=== PATIENT | male | born 1990 | race African-American/Black ===

== ENCOUNTER 2017-10-08 18:41 | Inpatient (IN) ==
[2017-10-08 20:07] LABS: Baso % (Auto) 0.8 % (0.0-2.0); Eos # (Auto) 0.1 th/mm3 (0.0-0.4); Hematocrit 41.7 % (39.0-51.0); Lymph # (Auto) 1.2 th/mm3 (1.0-4.8); Lymph % (Auto) 46.9 % (9.0-44.0); Mean Corpuscular HGB Conc 33.5 % (32.0-36.0); Mean Corpuscular Hemoglobin 30.9 pg (27.0-34.0); Mean Corpuscular Volume 92.2 fL (80.0-100.0); Mean Platelet Volume 8.7 fL (7.0-11.0); Mono # (Auto) 0.5 th/mm3 (0.0-0.9); Mono % (Auto) 20.8 % (0.0-8.0); Neut # (Auto) 0.7 th/mm3 (1.8-7.7); Neut % (Auto) 28.5 % (16.0-70.0); Platelet Count 188 th/mm3 (150-450); Red Blood Count 4.52 mil/mm3 (4.50-5.90); White Blood Count 2.6 th/mm3 (4.0-11.0)
--- NOTE | 2017-10-08 20:08 | ED ---
HPI General Chief Complaint: Psychiatric Symptoms Stated Complaint: exparte/VCSO Time Seen by Provider: 10/08/17 20:07 Source: patient and police Mode of arrival: ambulatory Limitations: no limitations History of Present Illness HPI Narrative: 27-year-old black male presents emergency department under an ex partake for psychiatric evaluation. According to ex partake the patient's been sexually inappropriate. He has been masturbating out in public. He also has been inappropriately touching unknown and female individual. He had stated that masturbating his foreplay. The patient is unwilling to assist with his history and physical today. He is refusing to answer questions. He denies any suicidal homicidal ideation. Related Data Home Medications Medication Instructions Recorded Confirmed olanzapine 10 mg PO HS 10/09/17 10/09/17 paliperidone palmitate [Invega 234 mg IM QMONTH 10/09/17 10/09/17 Sustenna] Allergies Allergy/AdvReac Type Severity Reaction Status Date / Time No Known Allergies Allergy Unknown UNKNOWN Uncoded 10/09/17 10:03 Review of Systems ROS Unobtainable ROS Unobtainable: unobtainable due to mental condition PMFSH Medical History Medical History Neutropenia (Acute) Patient denies medical problems (Acute) Psychosis (Acute) Schizophrenia (Acute) Social History Social History Substance History: No History of Abuse Second Hand Smoke Exposure: No Smoking Status: Current every day smoker Tobacco Type: Cigarettes How Often Do You Have a Drink Containing Alcohol: Never Recent Travel in [facility] within the Last 8 Weeks: No Recent Out of Country Travel within the Last 8 Weeks: No Exam Narrative Exam Narrative: GENERAL: Well-nourished, well-developed patient. SKIN: Warm and dry. HEAD: Normocephalic and atraumatic. EYES: No scleral icterus. No injection or drainage. ENT: No nasal drainage noted. Mucous membranes pink. Airway patent. NECK: Supple, trachea midline. Moves head freely without obvious discomfort. CARDIOVASCULAR: Regular rate and rhythm without murmurs, gallops, or rubs. RESPIRATORY: Breath sounds equal bilaterally. No accessory muscle use. GASTROINTESTINAL: Abdomen soft, non-tender, nondistended. EXTREMITIES: No cyanosis or edema. BACK: Nontender without obvious deformity. No CVA tenderness. NEURO: Patient is alert and oriented. no sensorimotor deficits. Nonfocal. Normal speech. PSYCH: Patient is acutely psychotic. He has orthodoxy preoccupation. Course Initial Documented Vital Signs Pulse Rate 88 10/08/17 19:47 Respiratory Rate 16 10/08/17 19:47 Blood Pressure 129/83 10/08/17 19:47 Pulse Oximetry 99 10/08/17 19:47 Last Documented Vital Signs Temperature 98.4 F 10/13/17 16:43 Pulse Rate 59 L 10/14/17 06:24 Respiratory Rate 18 10/13/17 16:43 Blood Pressure 134/73 10/14/17 06:24 Pulse Oximetry 97 10/13/17 16:43 Medical Decision Making MDM Narrative Medical decision making narrative: Routine laboratory tests sent for analysis for medical clearance. Patient is medically cleared. Medical Screen Exam Complete: Yes Emergency Medical Condition: Yes Differential Diagnosis Differential Diagnosis: MDM: High Differential diagnoses: Schizophrenia, schizoaffective disorder, bipolar, anxiety, depression, adjustment reaction, mood disorder NOS, ODD, depressive disorder NOS, dementia, dementia with agitation, psychosis NOS, substance induced mood disorder, DMDD, Asperger syndrome, infection,electrolyte abnormality, malingering. Mental health screening discussed with the patient. Psychiatric screen ordered. Lab Data Result diagrams: 10/12/17 09:56 10/08/17 19:40 Lab Results 10/08/17 10/08/17 10/08/17 Range/Units 19:40 19:40 19:40 WBC 2.6 L (4.0-11.0) th/mm3 RBC 4.52 (4.50-5.90) mil/mm3 Hgb 14.0 (13.0-17.0) gm/dL Hct 41.7 (39.0-51.0) % MCV 92.2 (80.0-100.0) fL MCH 30.9 (27.0-34.0) pg MCHC 33.5 (32.0-36.0) % RDW 13.0 (11.6-17.2) % Plt Count 188 (150-450) th/mm3 MPV 8.7 (7.0-11.0) fL Prelim Diff (Auto) Slide review pending Neut % (Auto) 28.5 (16.0-70.0) % Lymph % (Auto) 46.9 H (9.0-44.0) % Dixie % (Auto) 20.8 H (0.0-8.0) % Eos % (Auto) 3.0 (0.0-4.0) % Baso % (Auto) 0.8 (0.0-2.0) % Neut # (Auto) 0.7 L (1.8-7.7) th/mm3 Lymph # (Auto) 1.2 (1.0-4.8) th/mm3 Dixie # (Auto) 0.5 (0.0-0.9) th/mm3 Eos # (Auto) 0.1 (0.0-0.4) th/mm3 Baso # (Auto) 0.0 (0.0-0.2) th/mm3 WBC Differential Manual diff final Seg Neuts % (Manual) 20 (16-70) % Band Neuts % (Manual) 1 (0-6) % Lymphocytes % (Manual) 58 H (9-44) % Monocytes % (Manual) 17 H (0-8) % Eosinophils % (Manual) 2 (0-4) % Basophils % (Manual) 1 (0-2) % Metamyelocytes % (Man) 1 (0-1) % Abs Neuts (Manual) 0.6 L (1.8-7.7) th/mm3 Differential Comment . Platelet Estimate Normal (Normal) Platelet Morphology Normal (Normal) RBC Morphology Normal (Normal) ESR (0-15) mm/hr Sodium 143 (136-145) meq/L Potassium 4.2 (3.5-5.1) meq/L Chloride 107 (98-107) meq/L Carbon Dioxide 26.1 (21.0-32.0) meq/L Anion Gap 10 (5-15) meq/L BUN 10 (7-18) mg/dL Creatinine 1.20 (0.60-1.30) mg/dL Estimated GFR 89 (>89) mL/min Random Glucose 104 (74-106) mg/dL Hemoglobin A1c (4.3-6.0) % Calcium 8.7 (8.5-10.1) mg/dL Total Bilirubin 0.3 (0.2-1.0) mg/dL AST 25 (15-37) U/L ALT 20 (12-78) U/L Alkaline Phosphatase 62 (45-117) U/L C-Reactive Protein (0.00-0.30) mg/dL Total Protein 6.9 (6.4-8.2) g/dL Albumin 4.0 (3.4-5.0) g/dL Vitamin B12 (193-986) pg/mL Folate (3.1-17.5) ng/mL TSH 0.520 (0.358-3.740) uIU/mL Salicylates Less than 1.7 L (2.8-20.0) mg/dL Urine Opiates Screen (Neg) Acetaminophen Less than 2.0 L (10.0-30.0) mcg/mL Ur Barbiturates Screen (Neg) Ur Amphetamines Screen (Neg) U Benzodiazepines Scrn (Neg) Urine Cocaine Screen (Neg) U Cannabinoids Screen (Neg) Serum Alcohol Less than 3 (0-5) mg/dL Hepatitis A IgM Ab (Nonreactive) Hep Bs Antigen (Nonreactive) Hep B Core IgM Ab (Nonreactive) Hep C IgG Ab (Nonreactive) HIV 1&2 Ab/P24 Ag 4thGn (Nonreactive) 10/09/17 10/10/17 10/10/17 Range/Units 08:41 10:53 10:53 WBC 2.3 L (4.0-11.0) th/mm3 RBC 5.06 (4.50-5.90) mil/mm3 Hgb 15.6 (13.0-17.0) gm/dL Hct 46.1 (39.0-51.0) % MCV 91.2 (80.0-100.0) fL MCH 30.9 (27.0-34.0) pg MCHC 33.8 (32.0-36.0) % RDW 12.7 (11.6-17.2) % Plt Count 199 (150-450) th/mm3 MPV 9.1 (7.0-11.0) fL Prelim Diff (Auto) Slide review pending Neut % (Auto) 32.0 (16.0-70.0) % Lymph % (Auto) 47.3 H (9.0-44.0) % Dixie % (Auto) 18.3 H (0.0-8.0) % Eos % (Auto) 1.9 (0.0-4.0) % Baso % (Auto) 0.5 (0.0-2.0) % Neut # (Auto) 0.7 L (1.8-7.7) th/mm3 Lymph # (Auto) 1.1 (1.0-4.8) th/mm3 Dixie # (Auto) 0.4 (0.0-0.9) th/mm3 Eos # (Auto) 0.0 (0.0-0.4) th/mm3 Baso # (Auto) 0.0 (0.0-0.2) th/mm3 WBC Differential Manual diff final Seg Neuts % (Manual) 29 (16-70) % Band Neuts % (Manual) 2 (0-6) % Lymphocytes % (Manual) 48 H (9-44) % Monocytes % (Manual) 20 H (0-8) % Eosinophils % (Manual) 1 (0-4) % Basophils % (Manual) (0-2) % Metamyelocytes % (Man) (0-1) % Abs Neuts (Manual) 0.7 L (1.8-7.7) th/mm3 Differential Comment . Platelet Estimate Normal (Normal) Platelet Morphology Normal (Normal) RBC Morphology Normal (Normal) ESR (0-15) mm/hr Sodium (136-145) meq/L Potassium (3.5-5.1) meq/L Chloride (98-107) meq/L Carbon Dioxide (21.0-32.0) meq/L Anion Gap (5-15) meq/L BUN (7-18) mg/dL Creatinine (0.60-1.30) mg/dL Estimated GFR (>89) mL/min Random Glucose (74-106) mg/dL Hemoglobin A1c 5.7 (4.3-6.0) % Calcium (8.5-10.1) mg/dL Total Bilirubin (0.2-1.0) mg/dL AST (15-37) U/L ALT (12-78) U/L Alkaline Phosphatase (45-117) U/L C-Reactive Protein (0.00-0.30) mg/dL Total Protein (6.4-8.2) g/dL Albumin (3.4-5.0) g/dL Vitamin B12 (193-986) pg/mL Folate (3.1-17.5) ng/mL TSH (0.358-3.740) uIU/mL Salicylates (2.8-20.0) mg/dL Urine Opiates Screen Neg (Neg) Acetaminophen (10.0-30.0) mcg/mL Ur Barbiturates Screen Neg (Neg) Ur Amphetamines Screen Neg (Neg) U Benzodiazepines Scrn Neg (Neg) Urine Cocaine Screen Neg (Neg) U Cannabinoids Screen Pos H (Neg) Serum Alcohol (0-5) mg/dL Hepatitis A IgM Ab (Nonreactive) Hep Bs Antigen (Nonreactive) Hep B Core IgM Ab (Nonreactive) Hep C IgG Ab (Nonreactive) HIV 1&2 Ab/P24 Ag 4thGn (Nonreactive) 10/11/17 10/11/17 10/11/17 Range/Units 09:08 09:08 09:08 WBC (4.0-11.0) th/mm3 RBC (4.50-5.90) mil/mm3 Hgb (13.0-17.0) gm/dL Hct (39.0-51.0) % MCV (80.0-100.0) fL MCH (27.0-34.0) pg MCHC (32.0-36.0) % RDW (11.6-17.2) % Plt Count (150-450) th/mm3 MPV (7.0-11.0) fL Prelim Diff (Auto) Neut % (Auto) (16.0-70.0) % Lymph % (Auto) (9.0-44.0) % Dixie % (Auto) (0.0-8.0) % Eos % (Auto) (0.0-4.0) % Baso % (Auto) (0.0-2.0) % Neut # (Auto) (1.8-7.7) th/mm3 Lymph # (Auto) (1.0-4.8) th/mm3 Dixie # (Auto) (0.0-0.9) th/mm3 Eos # (Auto) (0.0-0.4) th/mm3 Baso # (Auto) (0.0-0.2) th/mm3 WBC Differential Seg Neuts % (Manual) (16-70) % Band Neuts % (Manual) (0-6) % Lymphocytes % (Manual) (9-44) % Monocytes % (Manual) (0-8) % Eosinophils % (Manual) (0-4) % Basophils % (Manual) (0-2) % Metamyelocytes % (Man) (0-1) % Abs Neuts (Manual) (1.8-7.7) th/mm3 Differential Comment Platelet Estimate (Normal) Platelet Morphology (Normal) RBC Morphology (Normal) ESR 2 (0-15) mm/hr Sodium (136-145) meq/L Potassium (3.5-5.1) meq/L Chloride (98-107) meq/L Carbon Dioxide (21.0-32.0) meq/L Anion Gap (5-15) meq/L BUN (7-18) mg/dL Creatinine (0.60-1.30) mg/dL Estimated GFR (>89) mL/min Random Glucose (74-106) mg/dL Hemoglobin A1c (4.3-6.0) % Calcium (8.5-10.1) mg/dL Total Bilirubin (0.2-1.0) mg/dL AST (15-37) U/L ALT (12-78) U/L Alkaline Phosphatase (45-117) U/L C-Reactive Protein Less than 0.29 (0.00-0.30) mg/dL Total Protein (6.4-8.2) g/dL Albumin (3.4-5.0) g/dL Vitamin B12 273 (193-986) pg/mL Folate 8.3 (3.1-17.5) ng/mL TSH (0.358-3.740) uIU/mL Salicylates (2.8-20.0) mg/dL Urine Opiates Screen (Neg) Acetaminophen (10.0-30.0) mcg/mL Ur Barbiturates Screen (Neg) Ur Amphetamines Screen (Neg) U Benzodiazepines Scrn (Neg) Urine Cocaine Screen (Neg) U Cannabinoids Screen (Neg) Serum Alcohol (0-5) mg/dL Hepatitis A IgM Ab Nonreactive (Nonreactive) Hep Bs Antigen Nonreactive (Nonreactive) Hep B Core IgM Ab Nonreactive (Nonreactive) Hep C IgG Ab Nonreactive (Nonreactive) HIV 1&2 Ab/P24 Ag 4thGn Nonreactive (Nonreactive) 10/12/17 Range/Units 09:56 WBC 2.2 L (4.0-11.0) th/mm3 RBC 4.84 (4.50-5.90) mil/mm3 Hgb 15.3 (13.0-17.0) gm/dL Hct 43.1 (39.0-51.0) % MCV 89.2 (80.0-100.0) fL MCH 31.6 (27.0-34.0) pg MCHC 35.5 (32.0-36.0) % RDW 12.4 (11.6-17.2) % Plt Count 209 (150-450) th/mm3 MPV 8.7 (7.0-11.0) fL Prelim Diff (Auto) Neut % (Auto) 46.9 (16.0-70.0) % Lymph % (Auto) 36.2 (9.0-44.0) % Dixie % (Auto) 13.9 H (0.0-8.0) % Eos % (Auto) 2.2 (0.0-4.0) % Baso % (Auto) 0.8 (0.0-2.0) % Neut # (Auto) 1.0 L (1.8-7.7) th/mm3 Lymph # (Auto) 0.8 L (1.0-4.8) th/mm3 Dixie # (Auto) 0.3 (0.0-0.9) th/mm3 Eos # (Auto) 0.0 (0.0-0.4) th/mm3 Baso # (Auto) 0.0 (0.0-0.2) th/mm3 WBC Differential . Seg Neuts % (Manual) (16-70) % Band Neuts % (Manual) (0-6) % Lymphocytes % (Manual) (9-44) % Monocytes % (Manual) (0-8) % Eosinophils % (Manual) (0-4) % Basophils % (Manual) (0-2) % Metamyelocytes % (Man) (0-1) % Abs Neuts (Manual) (1.8-7.7) th/mm3 Differential Comment Auto diff final Platelet Estimate (Normal) Platelet Morphology (Normal) RBC Morphology (Normal) ESR (0-15) mm/hr Sodium (136-145) meq/L Potassium (3.5-5.1) meq/L Chloride (98-107) meq/L Carbon Dioxide (21.0-32.0) meq/L Anion Gap (5-15) meq/L BUN (7-18) mg/dL Creatinine (0.60-1.30) mg/dL Estimated GFR (>89) mL/min Random Glucose (74-106) mg/dL Hemoglobin A1c (4.3-6.0) % Calcium (8.5-10.1) mg/dL Total Bilirubin (0.2-1.0) mg/dL AST (15-37) U/L ALT (12-78) U/L Alkaline Phosphatase (45-117) U/L C-Reactive Protein (0.00-0.30) mg/dL Total Protein (6.4-8.2) g/dL Albumin (3.4-5.0) g/dL Vitamin B12 (193-986) pg/mL Folate (3.1-17.5) ng/mL TSH (0.358-3.740) uIU/mL Salicylates (2.8-20.0) mg/dL Urine Opiates Screen (Neg) Acetaminophen (10.0-30.0) mcg/mL Ur Barbiturates Screen (Neg) Ur Amphetamines Screen (Neg) U Benzodiazepines Scrn (Neg) Urine Cocaine Screen (Neg) U Cannabinoids Screen (Neg) Serum Alcohol (0-5) mg/dL Hepatitis A IgM Ab (Nonreactive) Hep Bs Antigen (Nonreactive) Hep B Core IgM Ab (Nonreactive) Hep C IgG Ab (Nonreactive) HIV 1&2 Ab/P24 Ag 4thGn (Nonreactive) Discharge Plan Discharge Disposition Patient Disposition: 01 Discharge Home Discharge Condition Condition: Stable Physicians Team ED Provider: Amina Gonzalez ED Midlevel Provider: Farhad Khan Primary Care Provider: UNKNOWN, Attending Provider: Sim Glass Other Providers: Sim Glass ; Utilizer, High Service ; Rob Olivo Status ED Status: Left Department Discharge Information Discharge Date/Time: 10/09/17 13:00
[2017-10-08 20:26] LABS: Alanine Aminotransferase 20 U/L (12-78)
[2017-10-08 20:35] LABS: Anion Gap 10 meq/L (5-15); Aspartate Aminotransferase 25 U/L (15-37); Blood Urea Nitrogen 10 mg/dL (7-18); Calcium 8.7 mg/dL (8.5-10.1); Carbon Dioxide 26.1 meq/L (21.0-32.0); Chloride 107 meq/L (98-107); Glomerular Filtration Rate 89 mL/min (>89); Glucose,Random 104 mg/dL (74-106); Potassium 4.2 meq/L (3.5-5.1); Sodium 143 meq/L (136-145)
[2017-10-08 20:36] LABS: Alkaline Phosphatase 62 U/L (45-117); Total Protein 6.9 g/dL (6.4-8.2)
[2017-10-08 22:13] LABS: Eosinophils 2 % (0-4); Lymphocytes 58 % (9-44); Metamyelocytes 1 % (0-1); Monocytes 17 % (0-8); Platelet Estimate Normal (Normal); Platelet Morphology Normal (Normal)
[2017-10-08 22:14] LABS: RBC Morphology Normal (Normal)
[2017-10-09 09:24] LABS: Amphetamine Screen,Urine Neg (Neg); Barbiturate Screen,Urine Neg (Neg); Cannabinoid Screen,Urine Pos (Neg); Cocaine Screen,Urine Neg (Neg)
[2017-10-09 09:29] LABS: Opiate Screen,Urine Neg (Neg)
[2017-10-09] MEDS ORDERED: Haloperidol Inj 5 MG/ML Ampul IM PRN (09:47)
[2017-10-09] MEDS ORDERED: LORazepam 1 MG Tablet PO PRN (09:47)
[2017-10-09] MEDS ORDERED: Bisacodyl 10 MG Supp RECTAL PRN (09:47)
[2017-10-09] MEDS ORDERED: Aluminum/Magnesium/Simethacone Susp 30 ML UDC PO PRN (09:47)
--- NOTE | 2017-10-09 14:41 | P.HPPSY ---
Provisional Diagnosis Admission Date: October 09, 2017 09:47 [place] I.: Schizophrenia, cannabis use disorder [place] II.: Deferred [place] III.: No significant medical history Competence Certification of Person's Competence To Provide Express and Informed Consent I have personally examined Sylvester Bellamy, a person being served at [facility] on, October 09, 2017 1400. Express and informed consent means consent voluntarily given in writing, by a competent person, after sufficient explanation and disclosure of the subject matter involved to enable the person to make a knowing and willful decision without any element of force, fraud, deceit, duress, or other form of constraint or coercion. This person is 18 years of age or older, is not now known to be incompetent to consent to treatment with a guardian advocate, and does not have a health care surrogate or proxy currently making medical treatment decisions. I have found this person to be one of the following: [] Competent to provide express and informed consent, as defined above, for voluntary admission to this facility and is competent to provide express and informed consent for treatment. He/she has the consistent capacity to make well reasoned, willful, and knowing decisions concerning his or her medical or mental health treatment. The person fully and consistently understands the purpose of the admission for examination/placement and is fully capable of personally exercising all rights assured under [place] [] Incompetent to provide express and informed consent to voluntary admission, and this is incompetent to provide express and informed consent to treatment. The person must be transferred to involuntary status and a petition for a guardian advocate filed with the Circuit Court. [x] Refusing to provide express and informed consent to voluntary admission but is competent to provide express and informed consent for treatment. The person must be discharged or transferred to involuntary status. Form shall be completed within 24 hours of a person's arrival at the receiving facility and filed in the clinical record of each person: 1. Admitted on a voluntary basis 2. Permitted to provide express and informed consent to his/her own treatment 3. Allowed to transfer from involuntary to voluntary status 4. Prior to permitting a person to consent to his or her own treatment after having been previously found incompetent to consent to treatment. History of Present Illness Capacity: Lacks capacity History of Present Illness: The patient is a 27-year-old -Citizen Of [place] man, domiciled with a roommate in [place], single, unemployed, with a psychiatric history of schizophrenia, multiple psychiatric admissions, he has been seen once in [place] [facility] ER in 2016 briefly due to psychosis,but he was transferred to another institution, he also has history of cannabis use disorder, he denies previous suicidal attempts, he was just discharged from [facility] 3 days ago, he was injected with Invega Sustenna 234 mg on 10/05/2018 and he was also discharged on olanzapine 10 mg at bedtime, his next appointment is on October 24, 2017, he has no significant medical history, who presents emergency department under an ex parte for psychiatric evaluation. According to ex partake the patient's been sexually inappropriate. He has been masturbating out in public. He also has been inappropriately touching unknown and female individual. He had stated that masturbating his foreplay. The patient is unwilling to assist with his history and physical today. He is refusing to answer questions. He denies any suicidal homicidal ideation. Chart was reviewed. I got collateral information from [facility] about his recent hospitalization and the medication that he was discharged with above-mentioned medications and follow-up appointments. Psychiatric evaluation the patient is irritable, demanding to be discharged, quite guarded and visibly paranoid. The patient says that there is no reason to keep him here in the ER. He says that he has been masturbating because "not because I want to do it, It is God's decision. I have God's dicks and he uses me to have sex with women". Patient states that got his present all over and is watching everything he does. He says god has inside his penis and he can not control it. The patient has been quite paranoid in the room, he says that he does not feel comfortable being watched by so many cameras. Is also very restless, with constant movement of his legs and walking back and forth in the ER. He seems to be quite unpredictable and potentially aggressive. He denies suicidal and homicidal ideation, he denies visual and auditory hallucinations. PPHx: psychiatric history of schizophrenia, multiple psychiatric admissions, he has been seen once in [place] [facility] ER in 2016 briefly due to psychosis, but he was transferred to another institution, he also has history of cannabis use disorder, he denies previous suicidal attempts, he was just discharged from [facility] 3 days ago, he was injected with Invega Sustenna 234 mg on 10/05/2018 and he was also discharged on olanzapine 10 mg at bedtime, his next appointment is on October 24, 2017 PMHx: He denies medical history Substance Hx: He uses cannabis everyday Family Hx: He denies Social Hx: Patient was born and raised in [place], he lives in [place] with a roommate, his single, unemployed, his highest level of education is ninth grade - Inpatient Certification I certify that the inpatient services were ordered in accordance with Medicare regulations governing the order. This includes certification that hospital inpatient services are reasonable and necessary and in the case of services not specified as inpatient-only under 42 CFR 419.22(n), that they are appropriately provided as inpatient services in accordance to with the 2-midnight benchmark under 43 CFR 412.3(e) I certify that inpatient psychiatric hospital services are medically necessary. Evaluation and treatment and/or diagnostic testing are expected to improve the patient's condition. The patient needs on a daily basis, active treatment furnished directly by or requiring the supervision of inpatient psychiatric facility personnel. Estimated Total Length of Stay (Days): 14 Plans for Post Hospital Care: Home [facility] - History History Provided By: Patient - Medical History Medical History: Medical History (Last Reviewed 10/08/17 @ 20:10 by JAIRON Roman) Patient denies medical problems - Tobacco History Tobacco Use In Past 30 Days: Yes Smoking Status: Current every day smoker Tobacco Type: Cigarettes - Alcohol History How Often Do You Have a Drink Containing Alcohol: Never - Substance Use History Substance History: No History of Abuse - Travel History Recent Travel in the USA Within the Last 8 Weeks: No Recent Travel Out of the Country Within the Last 8 Weeks: No - Immunization History Tetanus Immunization: Unsure Medications and Allergies Active Medications: Active Medications Al Hydrox/Mg Hydrox/Simethicone (Mag-Al Plus Susp Liq) 30 ml PO Q6H PRN PRN Reason: DYSPEPSIA Al Hydroxide/Mg Hydroxide (Milk Of Magnesia Liq) 30 ml PO Q12H PRN PRN Reason: Mild Constipation Bisacodyl (Dulcolax Supp) 10 mg RECTAL DAILY PRN PRN Reason: SEVERE CONSITIPATION Haloperidol Lactate (Haldol Inj) 5 mg IM Q6H PRN PRN Reason: SEVERE AGITATION Lactulose (Lactulose Liq) 30 ml PO DAILY PRN PRN Reason: SEVERE CONSITIPATION Lorazepam (Ativan) 1 mg PO Q6H PRN PRN Reason: MODERATE TO SEVERE ANXIETY Senna/Docusate Sodium (Mayra-Colace) 1 tab PO BID GERMAN Sennosides (Senokot) 17.2 mg PO Q12H PRN PRN Reason: Moderate Constipation Allergies Allergy/AdvReac Type Severity Reaction Status Date / Time No Known Allergies Allergy Unknown UNKNOWN Uncoded 10/09/17 10:03 Home Medications Medication Instructions Recorded Confirmed Type olanzapine 10 mg PO HS 10/09/17 10/09/17 History paliperidone palmitate [Invega 234 mg IM QMONTH 10/09/17 10/09/17 History Sustenna] Results - Labs CBC & Chem 7: 10/08/17 19:40 10/08/17 19:40 Labs: Laboratory Results - last 24 hr 10/08/17 10/08/17 10/08/17 19:40 19:40 19:40 WBC 2.6 L RBC 4.52 Hgb 14.0 Hct 41.7 MCV 92.2 MCH 30.9 MCHC 33.5 RDW 13.0 Plt Count 188 MPV 8.7 Prelim Diff (Auto) Slide review pending Neut % (Auto) 28.5 Lymph % (Auto) 46.9 H Graves % (Auto) 20.8 H Eos % (Auto) 3.0 Baso % (Auto) 0.8 Neut # (Auto) 0.7 L Lymph # (Auto) 1.2 Graves # (Auto) 0.5 Eos # (Auto) 0.1 Baso # (Auto) 0.0 WBC Differential Manual diff final Seg Neuts % (Manual) 20 Band Neuts % (Manual) 1 Lymphocytes % (Manual) 58 H Monocytes % (Manual) 17 H Eosinophils % (Manual) 2 Basophils % (Manual) 1 Metamyelocytes % (Man) 1 Abs Neuts (Manual) 0.6 L Differential Comment . Platelet Estimate Normal Platelet Morphology Normal RBC Morphology Normal Sodium 143 Potassium 4.2 Chloride 107 Carbon Dioxide 26.1 Anion Gap 10 BUN 10 Creatinine 1.20 Estimated GFR 89 Random Glucose 104 Calcium 8.7 Total Bilirubin 0.3 AST 25 ALT 20 Alkaline Phosphatase 62 Total Protein 6.9 Albumin 4.0 TSH 0.520 Salicylates Less than 1.7 L Urine Opiates Screen Acetaminophen Less than 2.0 L Ur Barbiturates Screen Ur Amphetamines Screen U Benzodiazepines Scrn Urine Cocaine Screen U Cannabinoids Screen Serum Alcohol Less than 3 10/09/17 08:41 WBC RBC Hgb Hct MCV MCH MCHC RDW Plt Count MPV Prelim Diff (Auto) Neut % (Auto) Lymph % (Auto) Graves % (Auto) Eos % (Auto) Baso % (Auto) Neut # (Auto) Lymph # (Auto) Graves # (Auto) Eos # (Auto) Baso # (Auto) WBC Differential Seg Neuts % (Manual) Band Neuts % (Manual) Lymphocytes % (Manual) Monocytes % (Manual) Eosinophils % (Manual) Basophils % (Manual) Metamyelocytes % (Man) Abs Neuts (Manual) Differential Comment Platelet Estimate Platelet Morphology RBC Morphology Sodium Potassium Chloride Carbon Dioxide Anion Gap BUN Creatinine Estimated GFR Random Glucose Calcium Total Bilirubin AST ALT Alkaline Phosphatase Total Protein Albumin TSH Salicylates Urine Opiates Screen Neg Acetaminophen Ur Barbiturates Screen Neg Ur Amphetamines Screen Neg U Benzodiazepines Scrn Neg Urine Cocaine Screen Neg U Cannabinoids Screen Pos H Serum Alcohol Exam Vital signs: Vital Signs 10/08/17 19:47 10/08/17 20:00 10/09/17 05:28 Temperature 99.0 F Pulse Rate 88 88 59 L Respiratory Rate 16 16 16 Blood Pressure 129/83 124/83 125/58 L Pulse Oximetry 99 99 100 Intake & Output 10/08/17 10/09/17 10/09/17 18:59 06:59 18:59 Weight 79.596 kg Narrative: The patient has bilateral lower extremity restlessness, he seems to be quite anxious, agitated, - Constitutional mild distress, moderate distress - Routine HEENT Exam Head: Present: normocephalic Eye: Present: EOMI ENT: Present: mucous membranes moist Mental Status Examination Appearance: Disheveled Consciousness: Alert Orientation: x4 Motor Activity: Normal gait Speech: Unremarkable Language: Adequate Fund of Knowledge: Adequate Attention and Concentration: Adequate Memory: Unremarkable Mood: Angry Affect: Irritable Thought Process & Associations: Goal directed Thought Content: Bizarre thinking, Preoccupations, Delusional, Obsessions Hallucination Type: None Delusion Type: Bizarre, Paranoid Suicidal Ideation: No Suicidal Plan: No Suicidal Intention: No Homicidal Ideation: No Homicidal Plan: No Homicidal Intention: No Insight: Poor Judgment: Poor Assessment and Plan - Assessment (1) Akathisia Code(s): G25.71 - Drug induced akathisia Status: Acute - Plan Plan: Estimated LOS: [] days The patient presents with symptomatology of acute psychosis consisting on hyper religiosity, paranoid and hyperreligious delusions of being used by God to have sex with woman with the result of the patient being found masturbating multiple locations in the street. The patient does not seem to have any insight of his psychosis. He is also quite agitated, restless, unpredictable, potentially aggressive. This is a patient with an extensive history of schizophrenia, multiple psychiatric admissions,he was just discharged from the segment 3 days ago, he was given INvega Sustena 234 on 10/05/17. He was also discharged on olanzapine 10 mg at bedtime which the patient might not be taking. Given his level of psychosis the patient presents acute danger to self and others, he needs psychiatric admission for stabilization and safety. I will start olanzapine 10 mg at bedtime. I also will start propranolol 10 mg 3 times daily for potential akathisia. Patient will be transferred to 2700 unit. Justification for Continued Inpatient Stay: Patient will be admitted
[2017-10-09] MEDS: Senna/Docusate Sodium 8.6/50 MG Tablet PO SCH (20:52)
[2017-10-10] MEDS: Senna/Docusate Sodium 8.6/50 MG Tablet PO SCH (08:32)
[2017-10-10 11:47] LABS: Baso % (Auto) 0.5 % (0.0-2.0); Eos % (Auto) 1.9 % (0.0-4.0); Hematocrit 46.1 % (39.0-51.0); Hemoglobin 15.6 gm/dL (13.0-17.0); Lymph # (Auto) 1.1 th/mm3 (1.0-4.8); Lymph % (Auto) 47.3 % (9.0-44.0); Mean Corpuscular HGB Conc 33.8 % (32.0-36.0); Mean Corpuscular Hemoglobin 30.9 pg (27.0-34.0); Mean Corpuscular Volume 91.2 fL (80.0-100.0); Mean Platelet Volume 9.1 fL (7.0-11.0); Mono # (Auto) 0.4 th/mm3 (0.0-0.9); Mono % (Auto) 18.3 % (0.0-8.0); Neut # (Auto) 0.7 th/mm3 (1.8-7.7); Platelet Count 199 th/mm3 (150-450); Red Blood Count 5.06 mil/mm3 (4.50-5.90); Red Cell Distribution Width 12.7 % (11.6-17.2); White Blood Count 2.3 th/mm3 (4.0-11.0)
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
[2017-10-10 13:02] LABS: Eosinophils 1 % (0-4); Lymphocytes 48 % (9-44); Monocytes 20 % (0-8)
[2017-10-10 13:03] LABS: Platelet Estimate Normal (Normal); Platelet Morphology Normal (Normal); RBC Morphology Normal (Normal)
[2017-10-10] MEDS ORDERED: Zolpidem Tartrate 5 MG Tablet PO PRN (14:04)
[2017-10-10] MEDS ORDERED: Acetaminophen 325 MG Tablet PO PRN (14:04)
[2017-10-10 16:39] LABS: Hemoglobin A1c 5.7 % (4.3-6.0)
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
[2017-10-11 10:15] LABS: Folate 8.3 ng/mL (3.1-17.5); Vitamin B12 273 pg/mL (193-986)
[2017-10-11 10:18] LABS: Hepatitits B Surface Antigen Nonreactive (Nonreactive)
[2017-10-11 10:41] LABS: Hepatitis A IgM Antibody Nonreactive (Nonreactive)
--- NOTE | 2017-10-11 14:16 | P.PNPSY ---
Subjective Remarks: Patient seen and examined with nurse. Chart reviewed. Case discussed with nursing staff. On my examination today, the patient presents as irritable and childlike. He remains quite paranoid and religiously preoccupied. He continues to claim to hear the voice of God noting that guide "comes to me from time to time." He claims that the voice of God tells him "I didn't do nothing wrong." His insight into his mental illness is very poor, and the patient say "I don't have to take no psych meds." Patient is extremely upset that he is being held on the inpatient psychiatric unit. When I try to explain his legal status and the [address], the patient threatens to "write up" and "marty" this provider. He is quite intrusive and interrupts my interview with other patients. No physical complaints. Patient does provide phone number for uncle with whom he reportedly lives. Counselor has reached out to uncle and reports that uncle seems quite enmeshed with patient and does not believe the patient is mentally ill and so may not be a reliable source of collateral information. Vital Signs Temp Pulse Resp BP Pulse Ox 10/11/17 05:47 98.1 F 77 17 123/65 99 10/10/17 18:00 60 18 139/64 98 Laboratory Results - last 24 hr 10/10/17 10/11/17 10/11/17 10:53 09:08 09:08 ESR 2 Hemoglobin A1c 5.7 C-Reactive Protein Vitamin B12 Folate Hepatitis A IgM Ab Nonreactive Hep Bs Antigen Nonreactive Hep B Core IgM Ab Nonreactive Hep C IgG Ab Nonreactive HIV 1&2 Ab/P24 Ag 4thGn Nonreactive 10/11/17 09:08 ESR Hemoglobin A1c C-Reactive Protein Less than 0.29 Vitamin B12 273 Folate 8.3 Hepatitis A IgM Ab Hep Bs Antigen Hep B Core IgM Ab Hep C IgG Ab HIV 1&2 Ab/P24 Ag 4thGn Labs reviewed. Review of Systems unobtainable due to mental condition Mental Status Examination Appearance: Disheveled Consciousness: Alert, Vigilant Orientation: Person, Place (At least) Motor Activity: Normal gait, Other (No motor abnormalities noted) Speech: Unremarkable Language: Other (Somewhat rambling) Fund of Knowledge: Adequate Attention and Concentration: Adequate Memory: Unremarkable Mood: Oppositional, Anxious, Irritable Affect: Irritable, Anxious, Other (Childlike) Thought Process & Associations: Other (Perseverative on discharge) Thought Content: Bizarre thinking, Delusional Hallucination Type: Auditory (Voice of God) Delusion Type: Bizarre, Paranoid, Other (Quaker) Suicidal Ideation: No Homicidal Ideation: No Insight: Poor Judgment: Poor Assessment and Plan - Assessment (1) Schizophrenia Code(s): F20.9 - Schizophrenia, unspecified Status: Acute (2) Cannabis abuse Code(s): F12.10 - Cannabis abuse, uncomplicated Status: Acute - Plan Plan: Dr. Olivo from hematology has evaluated the patient and indicated that he does not believe that patient's current antipsychotics are contributing to leukopenia. Workup for possible etiology of leukopenia is ongoing. Patient is frankly psychotic and would benefit from additional antipsychotic medication to supplement the Invega Sustenna and he recently received. I did place a call to patient's healthcare surrogate to try to obtain permission to restart his olanzapine at higher dose (i.e. 15mg qHS) and left a voicemail requesting a call back. Continue to monitor on high acuity unit. Continue other meds and care as ordered. Justification for Continued Inpatient Stay: Impairment in reality construction. Impairment in social function. Medication changes planned. High risk for decompensation in less restrictive setting. Discharge Planning: Pending psychiatric stabilization. Request Healthcare Surrogate/Guardian Advocate?: Yes (1) Schizophrenia Qualifiers: Schizophrenia type: paranoid schizophrenia Qualified Code(s): F20.0 - Paranoid schizophrenia
[2017-10-12 10:29] LABS: Baso % (Auto) 0.8 % (0.0-2.0); Eos % (Auto) 2.2 % (0.0-4.0); Hematocrit 43.1 % (39.0-51.0); Hemoglobin 15.3 gm/dL (13.0-17.0); Lymph # (Auto) 0.8 th/mm3 (1.0-4.8); Lymph % (Auto) 36.2 % (9.0-44.0); Mean Corpuscular HGB Conc 35.5 % (32.0-36.0); Mean Corpuscular Hemoglobin 31.6 pg (27.0-34.0); Mean Corpuscular Volume 89.2 fL (80.0-100.0); Mean Platelet Volume 8.7 fL (7.0-11.0); Mono # (Auto) 0.3 th/mm3 (0.0-0.9); Mono % (Auto) 13.9 % (0.0-8.0); Neut % (Auto) 46.9 % (16.0-70.0); Platelet Count 209 th/mm3 (150-450); Red Blood Count 4.84 mil/mm3 (4.50-5.90); Red Cell Distribution Width 12.4 % (11.6-17.2); White Blood Count 2.2 th/mm3 (4.0-11.0)
--- NOTE | 2017-10-12 15:29 | P.PNPSY ---
Subjective Remarks: Patient was seen and case discussed with nursing. Patient remains leukopenic and continues to be followed by's medical team. He is perseverative on his white cell count and continues to ask the nurse. He remains psychotic and makes bizarre statements about his penis being controlled by God. However, he has been behaving well on the unit did not voice any inappropriate thoughts or behaviors towards anyone else today. Compliant with his medications. Internally stimulated Mental Status Examination Appearance: Disheveled Consciousness: Alert, Vigilant Orientation: Person, Place (At least) Motor Activity: Normal gait, Other (No motor abnormalities noted) Speech: Unremarkable Language: Other (Somewhat rambling) Fund of Knowledge: Adequate Attention and Concentration: Adequate Memory: Unremarkable Mood: Oppositional, Anxious, Irritable Affect: Irritable, Anxious, Other (Childlike) Thought Process & Associations: Other (Perseverative on discharge) Thought Content: Bizarre thinking, Delusional Hallucination Type: Auditory (Voice of God) Delusion Type: Bizarre, Paranoid, Other (Gnosticism) Suicidal Ideation: No Suicidal Plan: No Suicidal Intention: No Homicidal Ideation: No Homicidal Plan: No Homicidal Intention: No Insight: Poor Judgment: Poor Assessment and Plan - Assessment (1) Schizophrenia Code(s): F20.9 - Schizophrenia, unspecified Status: Acute (2) Cannabis abuse Code(s): F12.10 - Cannabis abuse, uncomplicated Status: Acute - Plan Plan: Continue current treatment plan Justification for Continued Inpatient Stay: Patient would decompensate in a less restrictive setting Request Healthcare Surrogate/Guardian Advocate?: Yes (1) Schizophrenia Qualifiers: Schizophrenia type: paranoid schizophrenia Qualified Code(s): F20.0 - Paranoid schizophrenia
--- NOTE | 2017-10-13 13:52 | P.PNPSY ---
Subjective Remarks: Patient was seen and case discussed with nursing. Patient remains floridly psychotic. He pretends to be Spider-Man during the interview shooting weapons from his hand. He refers to himself in the third person and when asked why he says that his family can read my thoughts as I am speaking with him and they have concerns. He is seclusive to his room. No sexual content or preoccupations elicited today from nursing Mental Status Examination Appearance: Disheveled Consciousness: Alert, Vigilant Orientation: Person, Place (At least) Motor Activity: Normal gait, Other (No motor abnormalities noted) Speech: Unremarkable Language: Other (Somewhat rambling) Fund of Knowledge: Adequate Attention and Concentration: Adequate Memory: Unremarkable Mood: Oppositional, Anxious, Irritable Affect: Irritable, Anxious, Other (Childlike) Thought Process & Associations: Other (Perseverative on discharge) Thought Content: Bizarre thinking, Hallucinations, Delusional Hallucination Type: Auditory (Voice of God) Delusion Type: Bizarre, Paranoid, Other (Episcopalian) Suicidal Ideation: No Suicidal Plan: No Suicidal Intention: No Homicidal Ideation: No Homicidal Plan: No Homicidal Intention: No Insight: Poor Judgment: Poor Assessment and Plan - Assessment (1) Schizophrenia Code(s): F20.9 - Schizophrenia, unspecified Status: Acute (2) Cannabis abuse Code(s): F12.10 - Cannabis abuse, uncomplicated Status: Acute - Plan Plan: Continue current treatment plan Justification for Continued Inpatient Stay: Patient would decompensate in a less restrictive setting Request Healthcare Surrogate/Guardian Advocate?: Yes (1) Schizophrenia Qualifiers: Schizophrenia type: paranoid schizophrenia Qualified Code(s): F20.0 - Paranoid schizophrenia
--- NOTE | 2017-10-14 11:11 | P.PNPSY ---
Subjective Remarks: Patient seen and examined with counselor. Chart reviewed. Case discussed with nursing. Patient has poor boundaries, particularly with females. On my exam, patient remains quite childlike and discharge focused. He alludes to an incident Saturday in which he was ambulating in the halls and rubbed against a female, "we was both walking in the hallway. I grabbed my penis but didn't move. This is God [patient begins speaking in the voice of God], he didn 't move. Well if you didn't move, it's ok." No penetration or exposure is reported, it sounds more like frotteurism from his description. I have taken the following steps to address this report: 1) placed nursing order to limit patient to the [facility] where only male patients are housed currently, 2) instructed counselor to notify DCF of this report and 3) discussed issue with charge nurse, who will pull the requisite security tapes to review. Patient remains quite delusional. He tells me that he is leukopenic because "I'm a hot boy, my elements are fire." Denies side effects from medications. No physical complaints. Spoke with patient's aunt/healthcare surrogate. She reports that the Zyprexa made the patient excessively sedated. We discuss replacing the Zyprexa with a different, less sedating antipsychotic and settle on a trial of Geodon p.o. with IM backup. I did review antipsychotic side effects with and including metabolic and motor side effects as well as the possibility of blood dyscrasias. Vital Signs Temp Pulse Resp BP Pulse Ox 10/14/17 06:24 59 L 134/73 10/13/17 16:43 98.4 F 79 18 119/72 97 Intake and Output 10/13/17 10/14/17 10/14/17 22:59 06:59 14:59 Other: Weight 76.5 kg Labs reviewed. No new labs. CBC from over the weekend reviewed. Review of Systems unobtainable due to mental condition Mental Status Examination Appearance: Disheveled Consciousness: Alert, Vigilant Orientation: Person, Place (At least) Motor Activity: Normal gait, Other (No abnormal motor movements noted) Speech: Unremarkable Language: Other (Remains rambling) Fund of Knowledge: Adequate Attention and Concentration: Adequate Memory: Unremarkable Mood: Oppositional, Anxious, Irritable Affect: Irritable, Anxious, Other (Childlike) Thought Process & Associations: Other (Perseverative on discharge) Thought Content: Bizarre thinking, Hallucinations, Delusional Hallucination Type: Auditory (Voice of God) Delusion Type: Bizarre, Paranoid, Other (Bahai, ongoing) Suicidal Ideation: No Suicidal Plan: No Suicidal Intention: No Homicidal Ideation: No Homicidal Plan: No Homicidal Intention: No Insight: Poor Judgment: Poor Assessment and Plan - Assessment (1) Schizophrenia Code(s): F20.9 - Schizophrenia, unspecified Status: Acute (2) Cannabis abuse Code(s): F12.10 - Cannabis abuse, uncomplicated Status: Acute - Plan Plan: Add Geodon 40 mg twice daily by mouth with IM backup with plans to titrate to effect to target psychosis. Intermittent monitoring of CBC. Precautions as noted above. Continue to monitor on the high acuity unit. Continue other care as ordered. Justification for Continued Inpatient Stay: Medication changes. Impairment in reality construction. Impairment in social function. High risk for decompensation in less restrictive environment. Discharge Planning: Pending psychiatric stabilization. Request Healthcare Surrogate/Guardian Advocate?: Yes (1) Schizophrenia Qualifiers: Schizophrenia type: paranoid schizophrenia Qualified Code(s): F20.0 - Paranoid schizophrenia
[2017-10-15 10:14] LABS: Baso % (Auto) 1.3 % (0.0-2.0); Eos % (Auto) 1.3 % (0.0-4.0); Hematocrit 45.9 % (39.0-51.0); Hemoglobin 15.5 gm/dL (13.0-17.0); Lymph # (Auto) 1.1 th/mm3 (1.0-4.8); Lymph % (Auto) 52.5 % (9.0-44.0); Mean Corpuscular HGB Conc 33.7 % (32.0-36.0); Mean Corpuscular Hemoglobin 30.7 pg (27.0-34.0); Mean Corpuscular Volume 90.9 fL (80.0-100.0); Mono # (Auto) 0.3 th/mm3 (0.0-0.9); Mono % (Auto) 14.2 % (0.0-8.0); Neut # (Auto) 0.6 th/mm3 (1.8-7.7); Neut % (Auto) 30.7 % (16.0-70.0); Platelet Count 219 th/mm3 (150-450); Red Blood Count 5.06 mil/mm3 (4.50-5.90); Red Cell Distribution Width 12.4 % (11.6-17.2); White Blood Count 2.1 th/mm3 (4.0-11.0)
--- NOTE | 2017-10-15 10:17 | P.PNPSY ---
Subjective Remarks: Patient seen and examined. Chart reviewed. Case discussed with nursing staff. No further behaviors yesterday or this morning. Case discussed in treatment team. Counselor relates that he called in report to [facility] as instructed. On my examination today, the patient remains delusional. He tells me that he continues to converse with God and that God is telling him that this provider is "running a game." Patient further tells me that he is Spider Man and as a consequence of being Spider Man "I can tell when you're running a game." He then gesticulates with his hand and says "see my hand, that's Spider Man!" He denies suicidal or homicidal ideation. No side effects from medications. No physical complaints. Vital Signs Temp Pulse Resp BP Pulse Ox 10/15/17 05:55 97.5 F L 78 16 118/72 98 Laboratory Results - last 24 hr 10/11/17 10/15/17 09:08 10:05 WBC 2.1 L RBC 5.06 Hgb 15.5 Hct 45.9 MCV 90.9 MCH 30.7 MCHC 33.7 RDW 12.4 Plt Count 219 MPV 8.0 Prelim Diff (Auto) Slide review pending Neut % (Auto) 30.7 Lymph % (Auto) 52.5 H [place] % (Auto) 14.2 H Eos % (Auto) 1.3 Baso % (Auto) 1.3 Neut # (Auto) 0.6 L Lymph # (Auto) 1.1 [place] # (Auto) 0.3 Eos # (Auto) 0.0 Baso # (Auto) 0.0 WBC Differential Manual diff final Seg Neuts % (Manual) 27 Lymphocytes % (Manual) 63 H Monocytes % (Manual) 8 Basophils % (Manual) 2 Abs Neuts (Manual) 0.6 L Differential Comment . Platelet Estimate Normal Platelet Morphology Normal KEVIN Screen Neg Labs reviewed. Fairly stable leukopenia. Review of Systems unobtainable due to mental condition Mental Status Examination Appearance: Disheveled Consciousness: Alert, Vigilant Orientation: Person, Place (At least) Motor Activity: Normal gait, Other (No motor abnormalities noted) Speech: Unremarkable Language: Other (Remains rambling) Fund of Knowledge: Adequate Attention and Concentration: Adequate Memory: Unremarkable Mood: Anxious Affect: Anxious, Other (Childlike) Thought Process & Associations: Other (Perseverative on discharge) Thought Content: Bizarre thinking, Hallucinations, Delusional Hallucination Type: Auditory (Voice of God) Delusion Type: Bizarre, Paranoid, Other (Grandiose. Bahai.) Suicidal Ideation: No Suicidal Plan: No Suicidal Intention: No Homicidal Ideation: No Homicidal Plan: No Homicidal Intention: No Insight: Poor Judgment: Poor Assessment and Plan - Assessment (1) Schizophrenia Code(s): F20.9 - Schizophrenia, unspecified Status: Acute (2) Cannabis abuse Code(s): F12.10 - Cannabis abuse, uncomplicated Status: Acute - Plan Plan: Titrate Geodon to 60 mg twice daily with plans for ongoing titration to target psychotic symptoms. Continue to trend leukopenia. Continue to monitor on the high acuity unit. Continue other medications and care as ordered. Justification for Continued Inpatient Stay: Medication changes. Impairment in reality construction. High risk for decompensation in less restrictive environment. Discharge Planning: Pending psychiatric stabilization. Request Healthcare Surrogate/Guardian Advocate?: Yes (1) Schizophrenia Qualifiers: Schizophrenia type: paranoid schizophrenia Qualified Code(s): F20.0 - Paranoid schizophrenia
--- NOTE | 2017-10-15 10:30 | P.TTN ---
- Patient Problems Problems: 1. Discharge planning 2. Medication compliance 3. Knowledge deficit 4. Lack of coping skills - Progress Toward Goals Provider Present: Dr. Bianca Glass Provider Input: Dr. Glass is titrating medication Geodon, patient is still psychotic and needs to remain for further stabilization. Psychiatric Counselors Present: Jim Musa Jr., [facility] Psychiatric Therapist Input: Patient presents as internally stimulated, with no insight and poor judgment. Patient needs to remain for further stabilization. Group Spec/RT/OT/MARTÍNEZ Present: MAURICIO Recinos Group Spec/RT/OT/MARTÍNEZ Input: Patient attends select groups. - Documentation Teaching Recipient: Patient
[2017-10-15 11:12] LABS: Lymphocytes 63 % (9-44); Monocytes 8 % (0-8); Platelet Estimate Normal (Normal); Platelet Morphology Normal (Normal)
--- NOTE | 2017-10-16 13:31 | P.PNPSY ---
Subjective Remarks: I have seen and examined this patient today for psychiatric reevaluation. I have also discussed this case with nursing staff and counselor. My psychiatric evaluation today the patient is found in the recreational area of [address]. The patient is calm, superficially cooperative, with a very inappropriate and bizarre affect. He was found talking to himself sitting in a chair. He reports that he is ready to be discharged, that he can read my mind because he is a combination between superman and Spider-Man. The patient reports that he is not masturbating anymore in public, and he is trying to do them private in the bathroom. During the evaluation he started laughing inappropriately multiple times, he seems to be quite internally preoccupied. Taking his medications, no significant side effects reported. Fully oriented 3. Mental Status Examination Appearance: Disheveled Consciousness: Alert, Vigilant Orientation: Person, Place (At least) Motor Activity: Normal gait, Other (No motor abnormalities noted) Speech: Unremarkable Language: Other (Remains rambling) Fund of Knowledge: Adequate Attention and Concentration: Adequate Memory: Unremarkable Mood: Anxious Affect: Anxious, Other (Childlike) Thought Process & Associations: Other (Perseverative on discharge) Thought Content: Bizarre thinking, Hallucinations, Delusional Hallucination Type: Auditory (Voice of God) Delusion Type: Bizarre, Paranoid, Other (Grandiose. Sikh.) Suicidal Ideation: No Suicidal Plan: No Suicidal Intention: No Homicidal Ideation: No Homicidal Plan: No Homicidal Intention: No Insight: Poor Judgment: Poor Assessment and Plan - Assessment (1) Schizophrenia Code(s): F20.9 - Schizophrenia, unspecified Status: Acute (2) Cannabis abuse Code(s): F12.10 - Cannabis abuse, uncomplicated Status: Acute - Plan Plan: Patient continues to be acutely psychotic. Dr. Gomez has increased his Geodon to 60 mg twice daily yesterday. Today we will continue current regimen. Breath supportive psychotherapy provided. Justification for Continued Inpatient Stay: Patient is acutely psychotic. Request Healthcare Surrogate/Guardian Advocate?: Yes (1) Schizophrenia Qualifiers: Schizophrenia type: paranoid schizophrenia Qualified Code(s): F20.0 - Paranoid schizophrenia
--- NOTE | 2017-10-17 08:27 | P.PNONC ---
Subjective Interval history: Patient seen and examined, vital signs, labs medications and psychiatry notes reviewed. Subjectively; patient denies fevers, chills, difficulty breathing, chest pain, he tells me his appetite is good. He tells me he has a court appointment today. He continues believe he is Spider-Man and appears to have ongoing issues with his psychosis. Objective Vital Signs/Intake & Output: Vital Signs 10/16/17 15:46 10/17/17 05:56 Temperature 98.8 F 97.9 F Pulse Rate 65 59 L Respiratory Rate 18 17 Blood Pressure 124/59 L 119/63 Pulse Oximetry 98 99 Intake & Output 10/16/17 10/17/17 10/17/17 18:59 06:59 18:59 Weight 76.9 kg Result Diagrams: 10/15/17 10:05 10/08/17 19:40 Medications: Active Medications Generic Name Dose Route Start Last Admin Trade Name Freq PRN Reason Stop Dose Admin Lorazepam 1 mg 10/09/17 09:47 10/12/17 23:18 Ativan PO 1 mg Q6H PRN Administration Anxiety/Agitation Ziprasidone 60 mg 10/15/17 14:30 10/16/17 18:33 Geodon PO 60 mg BIDPC GERMAN Administration Zolpidem Tartrate 5 mg 10/10/17 14:04 10/16/17 23:22 Ambien PO 5 mg HS PRN Administration INSOMNIA Objective Remarks: GENERAL: Young man, tall, thin, no apparent physical distress. Well-nourished, well-developed patient. SKIN: Warm and dry. HEAD: Normocephalic. EYES: No scleral icterus. No injection or drainage. NECK: Supple, trachea midline. No JVD or lymphadenopathy. LYMPHATIC: No adenopathy. CARDIOVASCULAR: Regular rate and rhythm without murmurs. RESPIRATORY: Breath sounds equal bilaterally. No accessory muscle use. GASTROINTESTINAL: Abdomen soft, non-tender, nondistended. EXTREMITIES: No cyanosis, or edema. MUSCULOSKELETAL: Adequate muscle tone. NEUROLOGICAL: No obvious focal deficit. Awake, alert. PSYCHIATRIC: Psychotic. Assessment/Plan - Plan 27-year-old man presently in the inpatient psychiatric unit for management of psychosis. Hematology was asked to see him 1 week ago for further workup and management of neutropenia with resultant leukopenia. A workup which included HIV testing, hepatitis testing, folic acid and vitamin B12 level assessment, review of peripheral smear and anti-neutrophil antibody analysis indicates no abnormalities. I personally reviewed his peripheral smear last week. There were no dysplastic or dysmorphic findings to suggest a primary bone marrow disorder. There were numerous neutrophils on the slide which are easy to find, morphologically these appear to be within normal limits. There was no evidence of immature nucleated cells or other pathologic findings. 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 Typically, a fluctuation and neutrophil count is appreciated in individuals of benign ethnic neutropenia with neutrophil levels cycling to moderately low levels all the way up to the normal range. Typically therapeutic intervention is not required. Other possible differential diagnoses include autoimmune neutropenia. Because his neutropenia is moderate and not severe his risk of developing clinically significant infections is slightly increased above the average population. I do not recommend prophylactic antibiotic usage at this time. Recommendations: 1. Neutropenia: At this point the neutropenia is moderate, no therapeutic intervention is required at this time. Peripheral smear and clinical findings do not point towards a primary bone marrow disorder. I would recommend continued observation with periodic CBC checks. Typically, individuals such as these should be followed in the outpatient setting by hematology.
--- NOTE | 2017-10-17 13:34 | P.PNPSY ---
Subjective Remarks: Patient was seen today for psychiatric reevaluation. The patient was also seen in [address]. Recommendations from hematology is reviewed and appreciated. The patient continues to be guarded, very paranoid and disorganized. The patient is requested to be discharged, he says that he has done nothing, he says that he was just exposing his penis "because it was God wish and not mine" . He says that he is a spiderman and not Ironman "Spiderman can read your mind ". Patient has been compliant his medications, no significant side effects reported Mental Status Examination Appearance: Disheveled Consciousness: Alert, Vigilant Orientation: Person, Place (At least) Motor Activity: Normal gait, Other (No motor abnormalities noted) Speech: Unremarkable Language: Other (Remains rambling) Fund of Knowledge: Adequate Attention and Concentration: Adequate Memory: Unremarkable Mood: Anxious Affect: Anxious, Other (Childlike) Thought Process & Associations: Other (Perseverative on discharge) Thought Content: Bizarre thinking, Hallucinations, Delusional Hallucination Type: Auditory (Voice of God) Delusion Type: Bizarre, Paranoid, Other (Grandiose. Yarsanism.) Suicidal Ideation: No Suicidal Plan: No Suicidal Intention: No Homicidal Ideation: No Homicidal Plan: No Homicidal Intention: No Insight: Poor Judgment: Poor Assessment and Plan - Assessment (1) Schizophrenia Code(s): F20.9 - Schizophrenia, unspecified Status: Acute (2) Cannabis abuse Code(s): F12.10 - Cannabis abuse, uncomplicated Status: Acute - Plan Plan: On my psychiatric evaluation today the patient continues to show acute symptomatology of psychosis. He is very paranoid, internally preoccupied, disorganized. I will increase the Geodon to 80 mg twice daily. Since the patient has some level of stiffness, will add benztropine 1 mg twice daily. Justification for Continued Inpatient Stay: Patient is acutely psychotic. Request Healthcare Surrogate/Guardian Advocate?: Yes (1) Schizophrenia Qualifiers: Schizophrenia type: paranoid schizophrenia Qualified Code(s): F20.0 - Paranoid schizophrenia
--- NOTE | 2017-10-18 12:10 | P.PNPSY ---
Subjective Remarks: The patient was seen today for psychiatric reevaluation. Case was discussed with nursing staff. The patient continues to be quite intrusive, disruptive, internally preoccupied, very disorganized. Requesting to be discharged, and stated that he has done nothing, stating that he was masturbating no because he wanted to just because "God and spiderman" wanted to. The patient seems to be quite unpredictable, with increased potential for aggression and agitation, extremely religiously preoccupied, he was reading the newspaper, but he tells me that his reading "this bible and these are lord words". The patient has not been aggressive or agitated so far the unit, but he does pace back and forward talking to himself and internally stimulated. He is compliant his medications, he does have some restlessness, essentially in the lower extremities, which might suggest akathisia. Review of Systems All other systems reviewed negative except as stated in HPI Psychiatric: Reports behavioral changes, Reports irritability, Reports mood swings, Reports other (paranoia, akathisia, loosening of association) Mental Status Examination Appearance: Disheveled Consciousness: Alert, Vigilant Orientation: Person, Place (At least) Motor Activity: Normal gait, Other (No motor abnormalities noted) Speech: Unremarkable Language: Other (Remains rambling) Fund of Knowledge: Inadequate, Poor Attention and Concentration: Easily distracted Memory: Impaired Mood: Anxious, Irritable Affect: Anxious, Other (Childlike) Thought Process & Associations: Other (Perseverative on discharge) Thought Content: Bizarre thinking, Hallucinations, Delusional Hallucination Type: Auditory (Voice of God) Delusion Type: Bizarre, Paranoid, Other (Grandiose. Tenriism.) Suicidal Ideation: No Suicidal Plan: No Suicidal Intention: No Homicidal Ideation: No Homicidal Plan: No Homicidal Intention: No Insight: Poor Judgment: Poor Assessment and Plan - Assessment (1) Schizophrenia Code(s): F20.9 - Schizophrenia, unspecified Status: Acute (2) Cannabis abuse Code(s): F12.10 - Cannabis abuse, uncomplicated Status: Acute (3) Akathisia Code(s): G25.71 - Drug induced akathisia Status: Acute - Plan Plan: Patient continues to be quite internally stimulated, religiously preoccupied, disorganized in the unit. He also presents with lower extremity restlessness, which suggest akathisia. Due to the severity of psychosis and the potential for dangerousness I will add a second antipsychotic, Seroquel 50 mg at bedtime. Also add propanolol 10 mg 3 times daily for akathisia. Justification for Continued Inpatient Stay: Patient is acutely psychotic, a danger to self and others, he denies psychiatric hospitalization for stabilization Request Healthcare Surrogate/Guardian Advocate?: Yes (1) Schizophrenia Qualifiers: Schizophrenia type: paranoid schizophrenia Qualified Code(s): F20.0 - Paranoid schizophrenia
[2017-10-18] MEDS: Propranolol 10 MG Tablet PO SCH ×2 (12:57→17:34)
[2017-10-18] MEDS: QUEtiapine 25 MG Tablet PO SCH (22:07)
[2017-10-19] MEDS: Propranolol 10 MG Tablet PO SCH ×3 (09:17→18:04)
--- NOTE | 2017-10-19 15:02 | P.PNPSY ---
Subjective Remarks: Patient was seen and case discussed with nursing. Patient is loud and internally stimulated today. His asked to move to another side of the unit and became argumentative. He has been confronting other patients is intrusive at times. He remains religiously preoccupied and states that he knows the nurses lying because is written on her forehead. No need for ETO's at this time Mental Status Examination Appearance: Disheveled Consciousness: Alert, Vigilant Orientation: Person, Place (At least) Motor Activity: Normal gait, Other (No motor abnormalities noted) Speech: Unremarkable Language: Other (Remains rambling) Fund of Knowledge: Inadequate, Poor Attention and Concentration: Easily distracted Memory: Impaired Mood: Oppositional, Anxious, Irritable Affect: Anxious, Other (Childlike) Thought Process & Associations: Other (Perseverative on discharge) Thought Content: Bizarre thinking, Hallucinations, Delusional Hallucination Type: Auditory (Voice of God) Delusion Type: Bizarre, Paranoid, Other (Grandiose. Voodoo.) Suicidal Ideation: No Suicidal Plan: No Suicidal Intention: No Homicidal Ideation: No Homicidal Plan: No Homicidal Intention: No Insight: Poor Judgment: Poor Assessment and Plan - Assessment (1) Schizophrenia Code(s): F20.9 - Schizophrenia, unspecified Status: Acute (2) Cannabis abuse Code(s): F12.10 - Cannabis abuse, uncomplicated Status: Acute (3) Akathisia Code(s): G25.71 - Drug induced akathisia Status: Acute - Plan Plan: Continue current treatment plan Justification for Continued Inpatient Stay: Patient would decompensate in a less restrictive setting Request Healthcare Surrogate/Guardian Advocate?: Yes (1) Schizophrenia Qualifiers: Schizophrenia type: paranoid schizophrenia Qualified Code(s): F20.0 - Paranoid schizophrenia
[2017-10-19 16:11] LABS: Baso % (Auto) 0.9 % (0.0-2.0); Eos # (Auto) 0.1 th/mm3 (0.0-0.4); Hematocrit 44.4 % (39.0-51.0); Hemoglobin 15.3 gm/dL (13.0-17.0); Lymph # (Auto) 1.4 th/mm3 (1.0-4.8); Lymph % (Auto) 44.7 % (9.0-44.0); Mean Corpuscular HGB Conc 34.5 % (32.0-36.0); Mean Corpuscular Volume 90.1 fL (80.0-100.0); Mean Platelet Volume 8.5 fL (7.0-11.0); Mono # (Auto) 0.4 th/mm3 (0.0-0.9); Mono % (Auto) 11.4 % (0.0-8.0); Neut # (Auto) 1.3 th/mm3 (1.8-7.7); Platelet Count 239 th/mm3 (150-450); Red Blood Count 4.93 mil/mm3 (4.50-5.90); Red Cell Distribution Width 12.5 % (11.6-17.2); White Blood Count 3.2 th/mm3 (4.0-11.0)
[2017-10-19] MEDS: QUEtiapine 25 MG Tablet PO SCH (22:02)
[2017-10-20] MEDS: Propranolol 10 MG Tablet PO SCH ×3 (09:06→18:28)
--- NOTE | 2017-10-20 11:23 | P.PNPSY ---
Subjective Remarks: Patient was seen and case discussed with nursing. Patient's behavior has improved today. He is from God or sexual delusions. He remains fixated on discharge and becomes very guarded when he realizes he would not happen today. Insight remains very poor. Compliant with medications Mental Status Examination Appearance: Disheveled Consciousness: Alert, Vigilant Orientation: Person, Place (At least) Motor Activity: Normal gait, Other (No motor abnormalities noted) Speech: Unremarkable Language: Other (Remains rambling) Fund of Knowledge: Inadequate, Poor Attention and Concentration: Easily distracted Memory: Impaired Mood: Angry, Oppositional, Irritable Affect: Other (Childlike) Thought Process & Associations: Other (Perseverative on discharge) Thought Content: Bizarre thinking, Hallucinations, Delusional Hallucination Type: Auditory (Voice of God) Delusion Type: Bizarre, Paranoid, Other (Grandiose. Presybeterian.) Suicidal Ideation: No Suicidal Plan: No Suicidal Intention: No Homicidal Ideation: No Homicidal Plan: No Homicidal Intention: No Insight: Poor Judgment: Poor Assessment and Plan - Assessment (1) Schizophrenia Code(s): F20.9 - Schizophrenia, unspecified Status: Acute (2) Cannabis abuse Code(s): F12.10 - Cannabis abuse, uncomplicated Status: Acute (3) Akathisia Code(s): G25.71 - Drug induced akathisia Status: Acute - Plan Plan: Continue current treatment plan Justification for Continued Inpatient Stay: Patient would decompensate in a less restrictive setting Request Healthcare Surrogate/Guardian Advocate?: Yes (1) Schizophrenia Qualifiers: Schizophrenia type: paranoid schizophrenia Qualified Code(s): F20.0 - Paranoid schizophrenia
[2017-10-20 17:46] VITALS: RESP 18; O2SAT 99
[2017-10-20] MEDS: QUEtiapine 25 MG Tablet PO SCH (20:26)
[2017-10-21 06:32] VITALS: BP 123/65; PULSE 57; TEMP 97.8
[2017-10-21] MEDS: Propranolol 10 MG Tablet PO SCH (09:54)
--- NOTE | 2017-10-21 12:24 | P.DSPSY ---
Psychiatry Discharge Summary Inpatient Psychiatric care?: Yes Advance Directives: No Mental Health Advance Directive: No Health Care Proxy: Yes - Admission Admission Date: October 09, 2017 09:47 - Admission Diagnosis (1) Schizophrenia Code(s): F20.9 - Schizophrenia, unspecified Brief History: The patient is a 27-year-old -[place] man, domiciled with a roommate in [place], single, unemployed, with a psychiatric history of schizophrenia, multiple psychiatric admissions, he has been seen once in [facility] in 2016 briefly due to psychosis,but he was transferred to another institution, he also has history of cannabis use disorder, he denies previous suicidal attempts, he was just discharged from [facility] 3 days ago, he was injected with Invega Sustenna 234 mg on 10/05/2018 and he was also discharged on olanzapine 10 mg at bedtime, his next appointment is on October 24, 2017, he has no significant medical history, who presents emergency department under an ex parte for psychiatric evaluation. According to ex partake the patient's been sexually inappropriate. He has been masturbating out in public. He also has been inappropriately touching unknown and female individual. He had stated that masturbating his foreplay. The patient is unwilling to assist with his history and physical today. He is refusing to answer questions. He denies any suicidal homicidal ideation. Chart was reviewed. I got collateral information from Koko Hartman about his recent hospitalization and the medication that he was discharged with above-mentioned medications and follow-up appointments. Psychiatric evaluation the patient is irritable, demanding to be discharged, quite guarded and visibly paranoid. The patient says that there is no reason to keep him here in the ER. He says that he has been masturbating because "not because I want to do it, It is God's decision. I have God's dicks and he uses me to have sex with women". Patient states that got his present all over and is watching everything he does. He says god has inside his penis and he can not control it. The patient has been quite paranoid in the room, he says that he does not feel comfortable being watched by so many cameras. Is also very restless, with constant movement of his legs and walking back and forth in the ER. He seems to be quite unpredictable and potentially aggressive. He denies suicidal and homicidal ideation, he denies visual and auditory hallucinations. PPHx: psychiatric history of schizophrenia, multiple psychiatric admissions, he has been seen once in [facility] ER in 2016 briefly due to psychosis, but he was transferred to another institution, he also has history of cannabis use disorder, he denies previous suicidal attempts, he was just discharged from [facility] 3 days ago, he was injected with Invega Sustenna 234 mg on 10/05/2018 and he was also discharged on olanzapine 10 mg at bedtime, his next appointment is on October 24, 2017 PMHx: He denies medical history Substance Hx: He uses cannabis everyday Family Hx: He denies Social Hx: Patient was born and raised in [place], he lives in [place] with a roommate, his single, unemployed, his highest level of education is ninth grade Tobacco Use In Past 30 Days: Yes How Often Do You Have a Drink Containing Alcohol: Never Hospital Course: The patient was admitted in psychiatry due to symptoms of psychosis. The patient was initially paranoid, disorganized, stating that he was masturbating in the street because god was telling him to do so. Initial psychosocial psychiatric assessment were performed. The patient was transferred to [facility] unit. Collateral information from family member was contacted. Patient was a started in Geodon 40 mg twice daily, benztropine 1 mg twice daily, Geodon was titrated up to 80 mg twice daily, Seroquel 50 mg was added as the patient showed poor response to Seroquel 50. The patient showed a very good response to psychotropic regimen, he became less delusional, less paranoid and gained some insight. In the unit he has not show any aggressive behavior, and agitation, and inappropriate sexual behavior. He has being somewhat talkative, hyper baptist but redirectable. Compliant medications, no significant side effects he continues to be somewhat delusional, but he is no a danger to self and others. He denies symptoms of depression, denies anxiety, denies suicidal and homicidal ideation, denies visual and auditory hallucinations. Patient has been widely educated about importance of being compliant with medications and outpatient follow-up. - Discharge Discharge Date: 10/21/17 - Discharge Diagnosis (1) Schizophrenia Code(s): F20.9 - Schizophrenia, unspecified Status: Acute Discharge Disposition: Home - Discharge Time > 30 minutes Mental Status Examination Appearance: Disheveled Consciousness: Alert Orientation: Person, Place (At least) Motor Activity: Normal gait, Other (No motor abnormalities noted) Speech: Unremarkable Language: Adequate Fund of Knowledge: Adequate Attention and Concentration: Adequate Memory: Impaired Mood: Good, Angry Affect: Flat Thought Process & Associations: Logical Thought Content: Bizarre thinking Hallucination Type: None Delusion Type: Bizarre Suicidal Ideation: No Suicidal Plan: No Suicidal Intention: No Homicidal Ideation: No Homicidal Plan: No Homicidal Intention: No Insight: Fair Judgment: Impulsive Discharge/Advance Care Plan - Results Vital Signs: Last Vital Signs Temp 97.8 F 10/21/17 06:32 Pulse 57 L 10/21/17 06:32 Resp 18 10/21/17 06:32 BP 123/65 10/21/17 06:32 Pulse Ox 99 10/21/17 06:32 Lab Results: Laboratory Results Hemoglobin A1c 5.7 % (4.3-6.0) 10/10/17 10:53 TSH 0.520 uIU/mL (0.358-3.740) 10/08/17 19:40 Summary of Procedures: None Pending Results: None - Medications Number of antipsychotic medications at discharge: 2 Appropriate use of more than 1 antipsychotic med: Minimum of three failed multiple trials of monotherapy - Discharge Care Plan Goals to Promote Your Health: * To prevent worsening of your condition and complications * To maintain your health at the optimal level Directions to Meet Your Goals: Take your medications as prescribed Follow your dietary instruction Follow activity as directed Keep your appointments as scheduled Take your immunizations and boosters as scheduled If your symptoms worsen call your PCP, if no PCP go to Urgent Care Center or Emergency Room For 10/09 questions related to your inpatient stay or results of tests pending at discharge, please contact Dr. Omar Gtz MD at Smoking is Dangerous to Your Health. Avoid second hand smoking (1) Schizophrenia Qualifiers: Schizophrenia type: paranoid schizophrenia Qualified Code(s): F20.0 - Paranoid schizophrenia (1) Schizophrenia Qualifiers: Schizophrenia type: paranoid schizophrenia Qualified Code(s): F20.0 - Paranoid schizophrenia
== END 2017-10-21 14:00 | disposition home or self-care (01) ==
LOC: NEPJ 18:41 → NEDA 10-09 09:47 → H270 10-09 13:00
PROVIDERS: ADMIT Psychiatry & Neurology Psychiatry; ATTEND Psychiatry & Neurology Psychiatry